=== PATIENT | female | born 1980 | race Two or more races ===

== ENCOUNTER 2024-02-11 07:41 | Inpatient (IN) | payer BC ==
[~2024-02-11] VITALS: Ht 149.9 cm; Wt 55.7 kg
[2024-02-11 08:22] LABS: Urine WBC None Seen /hpf (0 - 5)
[2024-02-11 08:36] LABS: Eosinophils # (auto) 0 10 ^3/uL (0-0.8); Eosinophils % (auto) 0.7 % (0.0-7.0); Hemoglobin 10.6 g/dL (12.2-16.2); Mean Corpuscular Volume 64.2 fL (80.0-100.0); Neutrophils # (auto) 3.7 10 ^3/uL (1.6-8.6); Nucleated Red Blood Cells % 0.1 %; White Blood Cell 5.7 10^3/uL (4.4-10.8)
[2024-02-11 08:37] LABS: Basophils # (auto) 0 10 ^3/uL (0-0.2); Basophils % (auto) 0.7 % (0.0-2.0); Hematocrit 34.7 % (36.0-46.0); Lymphocytes # (auto) 1.5 10 ^3/uL (0.4-5.4); Lymphocytes % (auto) 25.6 % (10.0-50.0); Mean Corpuscular Hemoglobin 19.6 pg (28.0-32.0); Mean Corpuscular Hgb Conc. 30.5 g/dL (32.0-36.0); Monocytes # (auto) 0.5 10 ^3/uL (0-1.3); Red Blood Cells 5.41 10^6/uL (4.0-5.20)
[2024-02-11 08:43] VITALS: PULSE 88; RESP 22; O2SAT 98
[2024-02-11 08:43] LABS: Red Cell Distribution Width 20.4 % (11.8-14.3)
[2024-02-11 08:47] LABS: Chloride 106 mmol/L (98-107); Sodium 137 mmol/L (136-145)
[2024-02-11 08:48] LABS: Anion Gap 6 (5-15); Calcium 9.5 mg/dL (8.5-10.1); Carbon Dioxide 25 mmol/L (20-30)
[2024-02-11 08:48] LABS: Urine Bacteria FEW /hpf (None Seen); Urine Blood Negative /uL (Negative); Urine Clarity Clear (Clear); Urine Color Light-Yellow (Yellow); Urine Protein, UAD Negative (Negative); Urine Specific Gravity 1.012 (1.001-1.035); Urine Urobilinogen Normal (Negative)
[2024-02-11 08:53] LABS: BUN/Creatinine Ratio 11.2 (10.0-20.0); Blood Urea Nitrogen 10 mg/dL (9-23); Glucose 97 mg/dL (74-106)
[2024-02-11 09:01] LABS: Anisocytosis Slight; Hypochromia Moderate; Platelet Estimate Adequate
[2024-02-11] MEDS: KETOROLAC TROMETH 30 MG/ML 1ML VIAL IV ONE (13:06)
[2024-02-11] MEDS: ACETAMINOPHEN 325 MG TAB PO ONE (13:12)
[2024-02-11] MEDS ORDERED: MORPHINE SULFATE INJ 2 MG/ml SYRG IV PRN (15:00)
[2024-02-11] MEDS ORDERED: DOCUSATE SOD 100 MG CAP PO PRN (15:00)
[2024-02-11] MEDS ORDERED: ONDANSETRON HCL 4 MG/2 ML VIAL IV PRN (15:00)
[2024-02-11] MEDS: CYCLOBENZAPRINE HCL 10 MG TAB PO ONE (15:34)
[2024-02-11] MEDS: SODIUM CHLORIDE 0.9% 1,000 ML IV SCH (15:44)
[2024-02-11 16:22] VITALS: PULSE 91; RESP 18; O2SAT 98
[2024-02-11] MEDS ORDERED: LEVO100T8 PO (16:37)
[2024-02-11 17:31] VITALS: BP 145/92; PULSE 91; RESP 19; TEMP 98.1; O2SAT 98
[2024-02-11 21:00] VITALS: BP 127/80; PULSE 80; RESP 18; TEMP 97.4; O2SAT 100
[2024-02-12] VITALS (8 sets, daily range): BP systolic 113–148; BP diastolic 70–90; PULSE 71–90; RESP 14–18; TEMP 97.5–98.6; O2SAT 98–100
[2024-02-12 06:01] LABS: Eosinophils # (auto) 0.1 10 ^3/uL (0-0.8); Monocytes # (auto) 0.4 10 ^3/uL (0-1.3)
[2024-02-12 06:05] LABS: Basophils # (auto) 0.1 10 ^3/uL (0-0.2); Basophils % (auto) 1.1 % (0.0-2.0); Eosinophils % (auto) 2.2 % (0.0-7.0); Hematocrit 30.4 % (36.0-46.0); Hemoglobin 9.6 g/dL (12.2-16.2); Lymphocytes # (auto) 1.7 10 ^3/uL (0.4-5.4); Lymphocytes % (auto) 34.6 % (10.0-50.0); Mean Corpuscular Hemoglobin 20.5 pg (28.0-32.0); Mean Corpuscular Hgb Conc. 31.7 g/dL (32.0-36.0); Mean Corpuscular Volume 64.6 fL (80.0-100.0); Monocytes % (auto) 9.3 % (0.0-12.0); Neutrophils # (auto) 2.5 10 ^3/uL (1.6-8.6); Neutrophils % (auto) 52.8 % (37.0-80.0); Red Blood Cells 4.71 10^6/uL (4.0-5.20); White Blood Cell 4.8 10^3/uL (4.4-10.8)
[2024-02-12] MEDS: LEVOTHYROXINE SODIUM 100 MCG TAB PO SCH (06:05)
[2024-02-12 06:07] LABS: Red Cell Distribution Width 20.4 % (11.8-14.3)
[2024-02-12 06:28] LABS: Alkaline Phosphatase 66 U/L (46-116); Anion Gap 7 (5-15); Aspartate Aminotransferase < 8 U/L (13-40); BUN/Creatinine Ratio 17.1 (10.0-20.0); Bilirubin, Total 0.3 mg/dL (0.2-1.0); Blood Urea Nitrogen 14 mg/dL (9-23); Carbon Dioxide 24 mmol/L (20-30); Chloride 109 mmol/L (98-107); Glucose 86 mg/dL (74-106); Potassium 3.9 mmol/L (3.5-5.1); Sodium 140 mmol/L (136-145)
[2024-02-12 06:29] LABS: Alanine Aminotransferase < 9 U/L (7-40); Total Protein 6.3 g/dL (5.7-8.2)
[2024-02-12 08:06] LABS: Rheumatoid Arthritis Factor <10.0 IU/mL (<14.0)
[2024-02-12] MEDS: CYCLOBENZAPRINE HCL 10 MG TAB PO PRN (08:24)
[2024-02-12 09:06] LABS: Anti-Nuclear Antibody Direct Negative (Negative)
[2024-02-12] MEDS ORDERED: FERR-7 PO (16:12)
[2024-02-12] MEDS ORDERED: GABA-1250 PO (16:12)
[2024-02-12] MEDS: ACETAMINOPHEN 325 MG TAB PO PRN (20:28)
== END 2024-02-12 23:33 | disposition home or self-care (01) | DRG 69 ==
LOC: ER 07:41 → OVERFLOW 14:47 → WEST WING 16:28
PROVIDERS: ADMIT Nurse Practitioner Family; ATTEND Nurse Practitioner Acute Care
DX: G45.9 Transient cerebral ischemic attack, unspecified (principal); M62.831 Muscle spasm of calf; F41.9 Anxiety disorder, unspecified; G62.9 Polyneuropathy, unspecified; D50.9 Iron deficiency anemia, unspecified; E06.3 Autoimmune thyroiditis; F17.200 Nicotine dependence, unspecified, uncomplicated; Z82.61 Family history of arthritis; Z88.0 Allergy status to penicillin; Z88.8 Allergy status to other drugs, medicaments and biological substances; Z79.899 Other long term (current) drug therapy; Z90.49 Acquired absence of other specified parts of digestive tract; Z82.0 Family history of epilepsy and other diseases of the nervous system; Z82.49 Family history of ischemic heart disease and other diseases of the circulatory system; Z83.3 Family history of diabetes mellitus; Z85.850 Personal history of malignant neoplasm of thyroid
CPT/HCPCS: 36415; 70450; 80048; 80053; 81001; 81025; 84443; 85025; 86038; 86431; 93970; G0378